=== PATIENT | male | born 1995 | race Caucasian/White ===

== ENCOUNTER 2020-06-01 19:07 | Emergency (ER) | payer OTHER, MEDICAID, SELFPAY ==
[2020-06-01] VITALS (13 sets, daily range): BP systolic 98–148; BP diastolic 49–81; PULSE 86–94; RESP 12–21; TEMP 36.9; O2SAT 95–100; BMI 26.6
--- NOTE | 2020-06-01 19:22 | ED.OVERDOSE ---
HPI - Overdose <Sharon Blackwell MD - Last Filed: 06/03/20 03:15> General Chief Complaint: Toxicology Problem Stated Complaint: drug overdose Time Seen by Provider: 06/01/20 19:21 History of Present Illness HPI Narrative: 24-year-old gentleman with a history of alcohol use disorder, methamphetamine use and opioid use disorder. Had been followed at [facility] and was using Vivitrol successfully until approximately 3 weeks ago. He missed his Vivitrol shot and then began drinking and returned to heroin and methamphetamine use. He states he had been using upward of 1 g of injectable heroin daily. Today he drank a 5th of hard alcohol to try to avoid withdrawal symptoms from avoiding heroin. His last heroin and methamphetamine use was approximately 24 hours ago. He also took 6 300 mg (1800mg) of ibuprofen to help with withdrawal symptoms and ?psychiatric pain?. He requests help with withdrawal as well as help in getting to detox. Upon arrival he is cooperative, significantly somnolent but maintaining control of airway. He adamantly denies suicidal intention. Related Data Previous Rx's Medication Instructions Recorded lorazepam [Ativan] See Rx Instructions .ROUTE 06/02/20 .COMPLEX PRN #12 tab buprenorphine-naloxone [Suboxone] 2 film SL DAILY #10 each 06/03/20 Allergies Allergy/AdvReac Type Severity Reaction Status Date / Time No Known Drug Allergies Allergy Verified 06/01/20 19:30 Review of Systems <Sharon Blackwell MD - Last Filed: 06/03/20 03:15> Review of Systems Narrative: Denies fever, cough, chills, chest pain, palpitations, abdominal pain, vomiting, diarrhea Patient History <Sharon Blackwell MD - Last Filed: 06/03/20 03:15> Medical History Polysubstance abuse (Acute) Exam <Sharon Blackwell MD - Last Filed: 06/03/20 03:15> Narrative Exam Narrative: General: Healthy appearing, somnolent but attempting to be cooperative. Requests help with detox but no other specific complaints HEENT: Moist mucous membranes, normal sclera with reactive midposition pupils, no nystagmus Respiratory: Lungs are clear to auscultation, no wheezing no rales no rhonchi. Full and symmetrical air movement Cardiac: Regular rate and rhythm no murmurs no bruits Abdomen: Soft nontender good bowel tones, no flank pain Skin: Warm and dry, no rashes are abscess. Track anne to arms Neurologic: Somnolent but otherwise Grossly neurologically intact with no obvious asymmetries or abnormalities Extremities: No trauma, well perfused Psych: Cooperative, significantly somnolent Initial Vital Signs Initial Vital Signs: Vital Signs Temperature 98.4 F 06/01/20 19:21 Pulse Rate 94 H 06/01/20 19:21 Respiratory Rate 12 06/01/20 19:21 Blood Pressure 148/81 H 06/01/20 19:21 Pulse Oximetry 99 06/01/20 19:21 <Urmila Ordonez DO - Last Filed: 06/02/20 18:04> Initial Vital Signs Initial Vital Signs: Vital Signs Temperature 98.4 F 06/01/20 19:21 Pulse Rate 94 H 06/01/20 19:21 Respiratory Rate 12 06/01/20 19:21 Blood Pressure 148/81 H 06/01/20 19:21 Pulse Oximetry 99 06/01/20 19:21 Course <Sharon Blackwell MD - Last Filed: 06/03/20 03:15> Orders Ordered: Discontinued Medications Buprenorphine/Naloxone (Suboxone 8/2 Mg Sl) 2 tab SL NOW ONE Stop: 06/02/20 08:16 Last Admin: 06/02/20 08:29 Dose: 2 tab Documented by: RITESH Magnesium Sulfate 2 gm/ Folic Acid 1 mg/ Thiamine HCl 100 mg / Multivitamins 10 ml/ Sodium Chloride 1,015.2 mls @ 125 mls/hr IV NOW ONE Stop: 06/02/20 04:00 Last Infusion: 06/02/20 04:49 Dose: 0 mls/hr Documented by: Admin: 06/01/20 20:32 Dose: 125 mls/hr Documented by: RENAN Nicotine (Nicoderm) 21 mg TOP NOW ONE Stop: 06/02/20 07:57 Last Admin: 06/02/20 08:21 Dose: 21 mg Documented by: CLYDE Vital Signs Vital signs: Vital Signs - 8 hr 06/02/20 01:00 06/02/20 01:30 06/02/20 02:00 Pulse Rate 88 81 81 Respiratory Rate 14 18 15 Blood Pressure 104/58 L 113/58 L 118/56 L Pulse Oximetry 97 95 06/02/20 02:30 06/02/20 03:00 06/02/20 03:30 Pulse Rate 80 75 72 Respiratory Rate 15 18 11 L Blood Pressure 120/55 L 112/51 L 125/63 Pulse Oximetry 98 98 96 06/02/20 04:00 06/02/20 04:30 06/02/20 05:00 Pulse Rate 74 71 69 Respiratory Rate 9 L 16 14 Blood Pressure 128/71 134/64 132/64 Pulse Oximetry 98 98 97 06/02/20 05:30 06/02/20 05:46 06/02/20 06:00 Pulse Rate 92 H 86 78 Respiratory Rate 34 H 15 12 Blood Pressure 131/71 139/69 116/57 L Pulse Oximetry 97 99 97 06/02/20 06:29 06/02/20 06:30 Pulse Rate 88 Respiratory Rate 25 H Blood Pressure 131/71 Pulse Oximetry 98 <Urmila Ordonez, - Last Filed: 06/02/20 18:04> Orders Ordered: Discontinued Medications Buprenorphine/Naloxone (Suboxone 8/2 Mg Sl) 2 tab SL NOW ONE Stop: 06/02/20 08:16 Last Admin: 06/02/20 08:29 Dose: 2 tab Documented by: RITESH Magnesium Sulfate 2 gm/ Folic Acid 1 mg/ Thiamine HCl 100 mg / Multivitamins 10 ml/ Sodium Chloride 1,015.2 mls @ 125 mls/hr IV NOW ONE Stop: 06/02/20 04:00 Last Infusion: 06/02/20 04:49 Dose: 0 mls/hr Documented by: Admin: 06/01/20 20:32 Dose: 125 mls/hr Documented by: RENAN Nicotine (Nicoderm) 21 mg TOP NOW ONE Stop: 06/02/20 07:57 Last Admin: 06/02/20 08:21 Dose: 21 mg Documented by: CLYDE Reevaluation(s) Reevaluation #1: Patient signed out to myself. COVID test pending with plan to give buprenorphine in ED and contact detox for placement. Patient labs reviewed and patient seen by myself in department. Patient is having trouble sleeping but otherwise doing well. Time: 07:30 Reevaluation #2: [facility] accepts patient but states that they will not dispense, give Suboxone. If patient is willing to come to the facility without Suboxone they are willing to take him. Patient states that he is willing. He has otherwise been medically cleared. Form was faxed to [facility], patient has been accepted and given rx for ativan and transportation arranged for patient. Time: 08:44 Vital Signs Vital signs: Vital Signs - 8 hr 06/02/20 01:00 06/02/20 01:30 06/02/20 02:00 Pulse Rate 88 81 81 Respiratory Rate 14 18 15 Blood Pressure 104/58 L 113/58 L 118/56 L Pulse Oximetry 97 95 06/02/20 02:30 06/02/20 03:00 06/02/20 03:30 Pulse Rate 80 75 72 Respiratory Rate 15 18 11 L Blood Pressure 120/55 L 112/51 L 125/63 Pulse Oximetry 98 98 96 06/02/20 04:00 06/02/20 04:30 06/02/20 05:00 Pulse Rate 74 71 69 Respiratory Rate 9 L 16 14 Blood Pressure 128/71 134/64 132/64 Pulse Oximetry 98 98 97 06/02/20 05:30 06/02/20 05:46 06/02/20 06:00 Pulse Rate 92 H 86 78 Respiratory Rate 34 H 15 12 Blood Pressure 131/71 139/69 116/57 L Pulse Oximetry 97 99 97 06/02/20 06:29 06/02/20 06:30 Pulse Rate 88 Respiratory Rate 25 H Blood Pressure 131/71 Pulse Oximetry 98 MDM - Overdose <Sharon Blackwell MD - Last Filed: 06/03/20 03:15> Medical Records Attestation: I reviewed the patient's medical records. Lab Data Attestation: I reviewed the patient's lab results. Result diagrams: 06/01/20 19:06/01/20 19:20 Labs: Lab Results 06/01/20 06/01/20 06/01/20 Range/Units 19:20 19:20 19:20 WBC 7.8 (4.5-11.0) X10^3/uL RBC 5.64 (4.5-5.9) X10^6/uL Hgb 16.3 (13.5-17.5) g/dL Hct 48.9 (41-53) % MCV 86.7 (80-100) fL MCH 29.0 (26-34) PG MCHC 33.4 (30-36) % RDW 13.3 (11.6-14.8) % Plt Count 369 (150-400) X10^3/uL Neut % (Auto) 64.3 (50-75) % Lymph % (Auto) 29.6 (25-40) % [place] % (Auto) 4.2 (3-14) % Eos % (Auto) 0.2 L (2-4) % Baso % (Auto) 1.7 (0-2) % Neut # (Auto) 5000 (0328-2397) /uL Lymph # (Auto) 2300 (9833-8651) /uL [place] # (Auto) 300 (0-900) /uL Eos # (Auto) 0 (0-450) /uL Baso # (Auto) 100 (0-100) /uL Sodium 140 (137-145) mmol/L Potassium 4.2 (3.4-5.1) mmol/L Chloride 102 (98-107) mmol/L Carbon Dioxide 31 (22-32) mmol/L BUN 9 (9-20) mg/dL Creatinine 0.72 (0.66-1.25) mg/dL Estimated GFR > 60.0 (>60) mL/min BUN/Creatinine Ratio 12.5 (6-22) Glucose 108 H (70-100) mg/dL Lactate 1.4 (0.7-2.1) mmol/L Calcium 9.3 (8.4-10.2) mg/dL Total Bilirubin 0.4 (0.2-1.3) mg/dL Conjugated Bilirubin 0.0 (0.0-0.3) md/dL Unconjugated Bilirubin 0.3 (0.0-1.1) mg/dL AST 61 H (17-59) IU/L ALT 82 H (<50) IU/L Alkaline Phosphatase 70 (38-126) U/L Total Protein 8.2 (6.3-8.2) g/dL Albumin 4.9 (3.5-5.0) g/dL Globulin 3.3 (1.7-4.1) g/dL Albumin/Globulin Ratio 1.5 (1.0-2.8) Salicylates < 1.0 (<20) mg/dL U Opiates 300ng/mL cut (Negative) Ur Oxycodone Screen (Negative) Urine Methadone Screen (Negative) Acetaminophen < 10 L (10-30) ug/mL Ur Barbiturates Screen (Negative) U Tricyclic Antidepress (Negative) Ur Phencyclidine Scrn (Negative) Ur Amphetamines Screen (Negative) U Methamphetamines Scrn (Negative) Ur MDMA Scrn (Ecstasy) (Negative) U Benzodiazepines Scrn (Negative) Urine Cocaine Screen (Negative) U Marijuana (THC) Screen (Negative) Ethyl Alcohol 106 H ( - 10) mg/dL COVID-19 PCR (Negative) 06/01/20 06/02/20 Range/Units 22:45 06:57 WBC (4.5-11.0) X10^3/uL RBC (4.5-5.9) X10^6/uL Hgb (13.5-17.5) g/dL Hct (41-53) % MCV (80-100) fL MCH (26-34) PG MCHC (30-36) % RDW (11.6-14.8) % Plt Count (150-400) X10^3/uL Neut % (Auto) (50-75) % Lymph % (Auto) (25-40) % [place] % (Auto) (3-14) % Eos % (Auto) (2-4) % Baso % (Auto) (0-2) % Neut # (Auto) (3610-5188) /uL Lymph # (Auto) (2003-8904) /uL [place] # (Auto) (0-900) /uL Eos # (Auto) (0-450) /uL Baso # (Auto) (0-100) /uL Sodium (137-145) mmol/L Potassium (3.4-5.1) mmol/L Chloride (98-107) mmol/L Carbon Dioxide (22-32) mmol/L BUN (9-20) mg/dL Creatinine (0.66-1.25) mg/dL Estimated GFR (>60) mL/min BUN/Creatinine Ratio (6-22) Glucose (70-100) mg/dL Lactate (0.7-2.1) mmol/L Calcium (8.4-10.2) mg/dL Total Bilirubin (0.2-1.3) mg/dL Conjugated Bilirubin (0.0-0.3) md/dL Unconjugated Bilirubin (0.0-1.1) mg/dL AST (17-59) IU/L ALT (<50) IU/L Alkaline Phosphatase (38-126) U/L Total Protein (6.3-8.2) g/dL Albumin (3.5-5.0) g/dL Globulin (1.7-4.1) g/dL Albumin/Globulin Ratio (1.0-2.8) Salicylates (<20) mg/dL U Opiates 300ng/mL cut Positive H (Negative) Ur Oxycodone Screen Negative (Negative) Urine Methadone Screen Negative (Negative) Acetaminophen (10-30) ug/mL Ur Barbiturates Screen Negative (Negative) U Tricyclic Antidepress Negative (Negative) Ur Phencyclidine Scrn Negative (Negative) Ur Amphetamines Screen Negative (Negative) U Methamphetamines Scrn Negative (Negative) Ur MDMA Scrn (Ecstasy) Negative (Negative) U Benzodiazepines Scrn Negative (Negative) Urine Cocaine Screen Negative (Negative) U Marijuana (THC) Screen Positive H (Negative) Ethyl Alcohol ( - 10) mg/dL COVID-19 PCR Negative (Negative) Point of Care Testing Glucose POC 108 Urine Dip Bedside Urine Glucose 100 mg/dl Bedside Urine Ketone - Negative Urine Specific [place] 1.015 Bedside Urine Occult Blood - Negative Bedside Urine pH 8.0 Bedside Urine Protein - Negative Bedside Urine Urobilinogen - Negative Bedside Urine Nitrite - Negative Bedside Urine Leukocytes - Negative Esterase ECG Data Attestation: I personally reviewed and interpreted this ECG as follows: Interpretation: Sinus tachycardia at 100 Normal axis, normal intervals Nonspecific ST T wave changes No acute ischemia MDM Narrative Medical decision making narrative: 24-year-old gentleman with history of polysubstance abuse. In trying to get away from heroin and methamphetamine his been drinking heavily today. He took 1800 mg of gabapentin in addition to the alcohol with alcohol level at only 106. Somnolent but maintaining airway. Will be allowed to sober over the evening and will anticipate discussion with social work and hopefully discharge to detox bed if available. 7am awake and alert this morning feeling much better. Still very interested in detox. States in the past he has been on 16 mg of Suboxone and would like to restart this. Explained that sometimes with fentanyl use restarting Suboxone can be challenging the 1st 24-48 hours. His last opiate use was at least 24 hours ago. Will begin with to 4 mg sublingually and continue to a total of 16 mg of lungs tolerated this morning. Prescription for 16 mg for 3 additional days is written in anticipation of his acceptance at detox and then appointment with [facility] to continue prescription. Male beds are available at detox. Records and labs are being faxed. Patient does have a ride and will call them once he has been accepted and is ready for discharge. <Urmila Ordonez, - Last Filed: 06/02/20 18:04> Lab Data Labs: Lab Results 06/01/20 06/01/20 06/01/20 Range/Units 19:20 19:20 19:20 WBC 7.8 (4.5-11.0) X10^3/uL RBC 5.64 (4.5-5.9) X10^6/uL Hgb 16.3 (13.5-17.5) g/dL Hct 48.9 (41-53) % MCV 86.7 (80-100) fL MCH 29.0 (26-34) PG MCHC 33.4 (30-36) % RDW 13.3 (11.6-14.8) % Plt Count 369 (150-400) X10^3/uL Neut % (Auto) 64.3 (50-75) % Lymph % (Auto) 29.6 (25-40) % [place] % (Auto) 4.2 (3-14) % Eos % (Auto) 0.2 L (2-4) % Baso % (Auto) 1.7 (0-2) % Neut # (Auto) 5000 (5926-6013) /uL Lymph # (Auto) 2300 (9234-9331) /uL [place] # (Auto) 300 (0-900) /uL Eos # (Auto) 0 (0-450) /uL Baso # (Auto) 100 (0-100) /uL Sodium 140 (137-145) mmol/L Potassium 4.2 (3.4-5.1) mmol/L Chloride 102 (98-107) mmol/L Carbon Dioxide 31 (22-32) mmol/L BUN 9 (9-20) mg/dL Creatinine 0.72 (0.66-1.25) mg/dL Estimated GFR > 60.0 (>60) mL/min BUN/Creatinine Ratio 12.5 (6-22) Glucose 108 H (70-100) mg/dL Lactate 1.4 (0.7-2.1) mmol/L Calcium 9.3 (8.4-10.2) mg/dL Total Bilirubin 0.4 (0.2-1.3) mg/dL Conjugated Bilirubin 0.0 (0.0-0.3) md/dL Unconjugated Bilirubin 0.3 (0.0-1.1) mg/dL AST 61 H (17-59) IU/L ALT 82 H (<50) IU/L Alkaline Phosphatase 70 (38-126) U/L Total Protein 8.2 (6.3-8.2) g/dL Albumin 4.9 (3.5-5.0) g/dL Globulin 3.3 (1.7-4.1) g/dL Albumin/Globulin Ratio 1.5 (1.0-2.8) Salicylates < 1.0 (<20) mg/dL U Opiates 300ng/mL cut (Negative) Ur Oxycodone Screen (Negative) Urine Methadone Screen (Negative) Acetaminophen < 10 L (10-30) ug/mL Ur Barbiturates Screen (Negative) U Tricyclic Antidepress (Negative) Ur Phencyclidine Scrn (Negative) Ur Amphetamines Screen (Negative) U Methamphetamines Scrn (Negative) Ur MDMA Scrn (Ecstasy) (Negative) U Benzodiazepines Scrn (Negative) Urine Cocaine Screen (Negative) U Marijuana (THC) Screen (Negative) Ethyl Alcohol 106 H ( - 10) mg/dL COVID-19 PCR (Negative) 06/01/20 06/02/20 Range/Units 22:45 06:57 WBC (4.5-11.0) X10^3/uL RBC (4.5-5.9) X10^6/uL Hgb (13.5-17.5) g/dL Hct (41-53) % MCV (80-100) fL MCH (26-34) PG MCHC (30-36) % RDW (11.6-14.8) % Plt Count (150-400) X10^3/uL Neut % (Auto) (50-75) % Lymph % (Auto) (25-40) % [place] % (Auto) (3-14) % Eos % (Auto) (2-4) % Baso % (Auto) (0-2) % Neut # (Auto) (5594-4938) /uL Lymph # (Auto) (6482-8236) /uL [place] # (Auto) (0-900) /uL Eos # (Auto) (0-450) /uL Baso # (Auto) (0-100) /uL Sodium (137-145) mmol/L Potassium (3.4-5.1) mmol/L Chloride (98-107) mmol/L Carbon Dioxide (22-32) mmol/L BUN (9-20) mg/dL Creatinine (0.66-1.25) mg/dL Estimated GFR (>60) mL/min BUN/Creatinine Ratio (6-22) Glucose (70-100) mg/dL Lactate (0.7-2.1) mmol/L Calcium (8.4-10.2) mg/dL Total Bilirubin (0.2-1.3) mg/dL Conjugated Bilirubin (0.0-0.3) md/dL Unconjugated Bilirubin (0.0-1.1) mg/dL AST (17-59) IU/L ALT (<50) IU/L Alkaline Phosphatase (38-126) U/L Total Protein (6.3-8.2) g/dL Albumin (3.5-5.0) g/dL Globulin (1.7-4.1) g/dL Albumin/Globulin Ratio (1.0-2.8) Salicylates (<20) mg/dL U Opiates 300ng/mL cut Positive H (Negative) Ur Oxycodone Screen Negative (Negative) Urine Methadone Screen Negative (Negative) Acetaminophen (10-30) ug/mL Ur Barbiturates Screen Negative (Negative) U Tricyclic Antidepress Negative (Negative) Ur Phencyclidine Scrn Negative (Negative) Ur Amphetamines Screen Negative (Negative) U Methamphetamines Scrn Negative (Negative) Ur MDMA Scrn (Ecstasy) Negative (Negative) U Benzodiazepines Scrn Negative (Negative) Urine Cocaine Screen Negative (Negative) U Marijuana (THC) Screen Positive H (Negative) Ethyl Alcohol ( - 10) mg/dL COVID-19 PCR Negative (Negative) Point of Care Testing Glucose POC 108 Urine Dip Bedside Urine Glucose 100 mg/dl Bedside Urine Ketone - Negative Urine Specific [place] 1.015 Bedside Urine Occult Blood - Negative Bedside Urine pH 8.0 Bedside Urine Protein - Negative Bedside Urine Urobilinogen - Negative Bedside Urine Nitrite - Negative Bedside Urine Leukocytes - Negative Esterase Discharge Plan Departure Patient Disposition: Home Clinical Impression: Polysubstance abuse Discharge Date/Time: 06/02/20 09:23 Instructions: DI for Substance Use Disorder Activity Restrictions/Additional Instructions: Thank you for coming in today. I am glad you are interested in getting to the toxic getting back to sober. We discussed restarting Suboxone verses Vivitrol. You have indicated that your interested in Suboxone. In the past you have been on 16 mg so I would anticipate that need again. You were given 16 mg in the emergency department this morning. You can contact [facility] to continue your prescription, because the detox center will not dispense this medication you will have to follow with [facility] to restart your suboxone. Good luck! [facility], contact information is below. Call had of time ([phone]) to inquire about an available bed. If there are no beds called daily and 9 AM and 9 PM to check on bed availability. If you're feeling suicidal or having suicidal thoughts, contact the suicide hotline: . Go directly to the crisis/detox center. Take the prescribed medications for your symptoms. Medications will be dispensed by the staff there. If you leave the Center you CANNOT take the extra medication home with you. Prescriptions: New lorazepam [Ativan] 1 mg tablet See Rx Instructions .ROUTE .COMPLEX PRN (Reason: alcohol withdrawal) Qty: 12 RF: 0 buprenorphine-naloxone [Suboxone] 8-2 mg film 2 film SL DAILY Qty: 10 RF: 0
[2020-06-01 19:41] LABS: Add Manual Diff / Slide Review NO; Basophils Absolute Auto 100 /uL (0-100); Basophils Percent Auto 1.7 % (0-2); Eosinophils Absolute Auto 0 /uL (0-450); Eosinophils Percent Auto 0.2 % (2-4); Hematocrit 48.9 % (41-53); Hemoglobin 16.3 g/dL (13.5-17.5); Lymphocytes Absolute Auto 2300 /uL (1100-4500); Lymphocytes Percent Auto 29.6 % (25-40); Mean Corpuscular HGB Conc 33.4 % (30-36); Mean Corpuscular Volume 86.7 fL (80-100); Monocytes Absolute Auto 300 /uL (0-900); Monocytes Percent Auto 4.2 % (3-14); Neutrophils Absolute Auto 5000 /uL (1500-7000); Neutrophils Percent Auto 64.3 % (50-75); Platelet Count 369 X10^3/uL (150-400); Red Blood Cell Count 5.64 X10^6/uL (4.5-5.9); Red Cell Distribution Width 13.3 % (11.6-14.8); White Blood Cell Count 7.8 X10^3/uL (4.5-11.0)
[2020-06-01 19:46] LABS: Lactate (Lactic Acid) 1.4 mmol/L (0.7-2.1)
[2020-06-01 19:47] LABS: Acetaminophen < 10 ug/mL (10-30); Alanine Aminotransferase 82 IU/L (<50); Albumin 4.9 g/dL (3.5-5.0); Albumin Globulin Ratio 1.5 (1.0-2.8); Alkaline Phosphatase 70 U/L (38-126); Aspartate Aminotransferase 61 IU/L (17-59); BUN Creatinine Ratio 12.5 (6-22); Bilirubin Total 0.4 mg/dL (0.2-1.3); Bilirubin Unconjugated 0.3 mg/dL (0.0-1.1); Blood Urea Nitrogen 9 mg/dL (9-20); Calcium 9.3 mg/dL (8.4-10.2); Carbon Dioxide 31 mmol/L (22-32); Chloride 102 mmol/L (98-107); Estimated Glomerular Filt Rate > 60.0 mL/min (>60); Ethanol (ETOH) 106 mg/dL; Globulin 3.3 g/dL (1.7-4.1); Glucose 108 mg/dL (70-100); HEMOLYSIS < 15 (0-50); Potassium 4.2 mmol/L (3.4-5.1); Salicylate < 1.0 mg/dL (<20); Sodium 140 mmol/L (137-145); Total Protein 8.2 g/dL (6.3-8.2)
--- NOTE | 2020-06-01 20:12 | PC.NURSE ---
Pt arouses to painful stimuli. Resp > 16, O2 > 98%. MD informed, wishes to continue to monitor at this time.
[2020-06-01] MEDS: MAGNESIUM SULFATE 2 GM, FOLIC ACID 1 MG, THIAMINE 100 MG, MULTIVITAMIN 10 ML in SODIUM ... IV (20:32)
[2020-06-01 23:32] LABS: UR Morphine/Opiate cutoff 300 Positive (Negative); Ur Creatinine Normal (Normal); Ur Specific Gravity Normal (Normal); Urine Amphetamines Negative (Negative); Urine Barbiturates Negative (Negative); Urine Benzodiazepines Negative (Negative); Urine Cocaine Negative (Negative); Urine MDMA Negative (Negative); Urine Methadone Negative (Negative); Urine Methamphetamines Negative (Negative); Urine Oxycodone Negative (Negative); Urine Phencyclidine Negative (Negative); Urine Tetrahydrocannabinol Positive (Negative); Urine Tricyclic Antidepressant Negative (Negative); Urine pH Normal (Normal)
[2020-06-02] VITALS (21 sets, daily range): BP systolic 104–143; BP diastolic 51–73; PULSE 69–97; RESP 9–34; O2SAT 95–99
--- NOTE | 2020-06-02 05:58 | PC.NURSE ---
Pt is now awake. Much more alert. States I feel like crap. I just want to get into a detox place.
[2020-06-02 07:37] LABS: COVID19 -Nasal RAPID Negative (Negative)
[2020-06-02] MEDS: NICOTINE 21 MG PATCH TOP (08:21)
[2020-06-02] MEDS: BUPRENORPHINE/NALOXONE 8MG/2MG 1 TAB 2 TAB SL (08:29)
== END 2020-06-02 09:23 | disposition home or self-care (01) ==
PROVIDERS: Emergency Medicine; Emergency Provider Emergency Medicine
DX: F19.10 Other psychoactive substance abuse, uncomplicated (principal); F10.129 Alcohol abuse with intoxication, unspecified; Y90.5 Blood alcohol level of 100-119 mg/100 ml
CPT/HCPCS: 80053; 80076; 80305; 80320; 80329; 81003; 82962; 83605; 85025; 87635; 93005; 96360; 96361; 99284; G0480; J3475